=== PATIENT | male | born 1990 | race Caucasian/White ===

== ENCOUNTER 2020-08-03 11:43 | Emergency (ER) | END 2020-08-03 12:19 | disposition home or self-care (01) | LOC: MADERS 11:43 | DX: H60.12 Cellulitis of left external ear (principal); F17.210 Nicotine dependence, cigarettes, uncomplicated | CPT/HCPCS: 99283 ==

== ENCOUNTER 2023-10-14 22:40 | Emergency (ER) | payer OTHER, SELFPAY ==
[2023-10-14] MEDS ORDERED: Ketorolac Tromethamine 30 MG (1 mL) VIAL ONE (23:07)
[2023-10-14] MEDS ORDERED: Cyclobenzaprine 10 MG TAB ONE (23:07)
== END 2023-10-14 23:36 | disposition home or self-care (01) ==
LOC: MADERS 22:40
DX: S49.91XA Unspecified injury of right shoulder and upper arm, initial encounter (principal); F17.210 Nicotine dependence, cigarettes, uncomplicated; F17.220 Nicotine dependence, chewing tobacco, uncomplicated; Y23.0XXA Shotgun discharge, undetermined intent, initial encounter
CPT/HCPCS: 96374; J1885